=== PATIENT | male | born 1940 | race Caucasian/White ===

== ENCOUNTER 2019-10-11 14:09 | Inpatient (IN) ==
--- NOTE | 2019-10-11 15:13 | DR.SOBA ---
HPI Time Seen Time Seen by Provider: 10/11/19 15:12 Primary Care Physician Primary Care Physician: VENTURA HPI Comment HPI Comment: 79 yo cm w/ pmh copd/ asthma/ cad and tobacco abuse presents w/ cough/ sob x 24 hrs. Reports productive cough and progressive sob/ wheezing x 1 day. Productive of yellow sputum a/w diffuse chest tightness present only w/ coughing. No other CP. No f/c, cold/ congestion, abd pain, n/v/d, diaphoresis, syncope, leg swelling/ pain. home o2 dependent at night. Complaints Chief Complaint:: PT BECAME SHORT OF BREATHE WITH COUGHNG. COUGHING MADE HIM BE SHORT OF BREATHE. TIGHT IN CHEST LIKE CONGESTION. Self Treatment fo Chief Complaint: INHALER AND COUGH MEDS Reviewed Nurses Notes Reviewed: Yes Source History Provided: Patient and Family Member Mode of Arrival Mode of Arrival: Ambulatory Timing Onset of Chief Complaint: 10/10/19 Context History of:: Asthma and COPD; denies CHF and DVT/PE Associated Signs and Symptoms Associated Signs and Symptoms: Wheeze, Cough and Chest Pain; denies Fever, Nasal Congestion, Sore Throat, Hemoptysis, Leg Swelling and Calf Pain PMH PMH Past Medical History: Yes Past Medical History: Anxiety, Asthma, CHF, COPD, Dyslipidemia, GERD, Hypertension and OH Past Surgical History: Yes Surgical History: Angioplasty/Stents, Cholecystectomy and Ortho Surgery Family History History of Family Medical Conditions: Yes Family Medical History: Diabetes Mellitus, [place] and Hypertension Social History Type of Tobacco Use: Cigarettes Does any household member use tobacco: Yes Alcohol Use: DAILY Do you use any recreational Drugs:: No Lives With: Family Lives Where: Home infectious screening In the last 2 months have you had wt loss of >10#?: NO Have you had fever, night sweats or hemotysis?: No Have you traveled outside the country in the last 6 months?: No Isolation: Standard ROS Review of Systems Constitutional: No Symptoms Reported; negative Chills and Fever Eyes: No Symptoms Reported ENTM: No Symptoms Reported Respiratoy: Productive Cough, Short of Breath and Wheezing; negative Stridor Cardiovascular: negative Chest Pain, Edema and Syncope Gastrointestinal/Abdominal: No Symptoms Reported Genitourinary: No Symptoms Reported Neurological: No Symptoms Reported Musculoskeletal: No Symptoms Reported Integumentary: No Symptoms Reported Hematologic/Lymphatic: No Symptoms Reported Endocrine: No Symptoms Reported Psychiatric: No Symptoms Reported All Other Systems: Reviewed and Negative PE Vital Signs Vitals: Temperature 97.4 F Pulse Rate 71 Respiratory Rate 22 Blood Pressure [Left Arm] 143/69 Blood Pressure 126/58 O2 Sat by Pulse Oximetry 99 General Limitations: No Limitations General Appearance: Other (this body habitus, pulse ox 91% on RA ) Head Head Exam: Normal Inspection Eyes Eye exam: Normal Appearance ENT ENT Exam: Normal Exam Neck Neck Exam: Normal Inspection Chest Chest Inspection: Normal Inspection Respiratory Respiratory Exam: Prolonged Expiratory Phase; negative Accessory Muscle Use and Chest Wall Tenderness Respiratory Exam: Bilateral: Wheezing Cardiovascular Cardiovascular Exam: Regular Rate and Normal Rhythm Abdominal Exam Abdominal Exam: Normal Inspection, Normal Bowel Sounds and Soft Extremities Extremities Exam: Normal Inspection Back Back Exam: Normal Inspection Neurologic Neurological Exam: Alert and Oriented X3 Psychiatric Psychiatric Exam: Normal Affect and Normal Mood Skin Skin Exam: Warm, Dry, Intact and Normal Color MDM Additional Information Obtained Additional Information Obtained From: Old Records and Family Differential Diagnosis Differential Diagnosis: Asthma, Bronchitis, CHF, COPD, Mycardial Infarction, Pneumonia, Pneumothorax, Pulmonary embolism and Respiratory Failure COURSE Treatment Treatment: 79 yo m w/ prev hx of COPD/ asthma, home o2 dependant at night presents w/ 1 day hx of cough/ sob. CXR c/w CAP. Wheezing on exam. Given duoneb x 1, steroids. Started empirically on azithromycin/ rocephin. WBC elevated. CRe mildly elevated c/w yesica, likely hypovolemia, fluids started. Elevated lactate. BP stable. Will d/w hospitalist and admit patient. Education/Counseling Education/Counseling: Patient and Family Educated On: Treatment, Diagnosis, Prognosis and Needs for Follow Up ROR Labs Reviewed Laboratory Results Reviewed?: Yes Result Diagrams: 10/11/19 15:23 10/11/19 15:23 Laboratory: 10/11/19 15:47 Sputum - Expectorated Sputum - Final WBC 9.9 X10^3/uL (3.6-10.0) 10/11/19 15:23 RBC 4.00 X10^6/uL (4.7-6.0) L 10/11/19 15:23 Hgb 13.1 g/dL (13.5-18.0) L 10/11/19 15:23 Hct 38.9 % (42.0-54.0) L 10/11/19 15:23 MCV 97.2 fL (80.0-100.0) 10/11/19 15:23 MCH 32.8 pg (27.0-34.0) 10/11/19 15: MCHC 33.8 g/dL (33.0-35.0) 10/11/19 15: RDW 13.8 % (11.6-16.5) 10/11/19 15: Plt Count 230 X10^3/uL (150.0-450.0) 10/11/19 15: Plt Count Comment Adequate (ADEQUATE) 10/11/19 15: MPV 7.8 fL (7.4-11.0) 10/11/19 15: Neut % (Auto) 92.7 % (42.0-75.0) H 10/11/19 15: Lymph % (Auto) 5.3 % (21.0-51.0) L 10/11/19 15:23 [place] % (Auto) 1.6 % (0.0-13.0) 10/11/19 15: Eos % (Auto) 0.0 % (0.9-2.9) L 10/11/19 15:23 Baso % (Auto) 0.4 % (0.2-1.0) 10/11/19 15: Neut # (Auto) 9.2 x10^3/uL (2.2-4.8) H 10/11/19 15:23 Lymph # (Auto) 0.5 X10^3/uL (1.3-2.9) L 10/11/19 15:23 [place] # (Auto) 0.2 x10^3/uL (0.3-0.8) L 10/11/19 15:23 Eos # (Auto) 0.0 x10^3/uL (0.0-0.2) 10/11/19 15: Baso # (Auto) 0.0 X10^3/uL (0.0-0.1) 10/11/19 15: Absolute Nucleated RBC 0.0 /100WBC 10/11/19 15:23 Total Counted 100 10/11/19 15: Neutrophils % (Manual) 35 % (39-76) L 10/11/19 15:23 Band Neutrophils % 48 % (0-10) H 10/11/19 15:23 Lymphocytes % (Manual) 10 % (13-43) L 10/11/19 15:23 Metamyelocytes % 7 10/11/19 15:23 Plt Morphology Comment Normal (NORMAL) 10/11/19 15:23 RBC Morphology Normal (NORMAL) 10/11/19 15:23 Sodium 139 mmol/L (136-145) 10/11/19 15:23 Corrected Sodium 139 mmol/L (136-145) 10/11/19 15:23 Potassium 4.1 mmol/L (3.5-5.1) 10/11/19 15:23 Chloride 101 mmol/L (98-107) 10/11/19 15:23 Carbon Dioxide 25.0 mmol/L (21-32) 10/11/19 15:23 BUN 18 mg/dL (7-18) 10/11/19 15:23 Creatinine 1.44 mg/dL (0.70-1.30) H 10/11/19 15:23 Est GFR (MDRD) Af Amer > 60 (>60) 10/11/19 15:23 Est GFR (MDRD) Non-Af 50 (>60) L 10/11/19 15:23 Glucose 119 mg/dL (65-99) H 10/11/19 15:23 Lactic Acid 6.1 mmol/L (0.4-2.0) H 10/11/19 15:48 Calcium 8.4 mg/dL (8.5-10.1) L 10/11/19 15:23 Troponin I 0.11 ng/mL (0-1.5) 10/11/19 15:23 XRAY XRAY Interpreted by: Radiologist XRAY Findings: Left field infiltrate on cxr EKG Rate: 73 [place]: Normal Rhythm: NSR Block: None ST: Nonsp Opioid Opioid Risk Tool Age (Robel box if 16-45): No Total: 0 Total Score Risk Category: Low Risk Copyright: [facility] predicting aberrant behaviors Diagnosis Discharge Problem: Acute exacerbation of chronic obstructive pulmonary disease (COPD), Chronic hypoxemic respiratory failure, YESICA (acute kidney injury), Acidosis, lactic, Severe sepsis Community acquired pneumonia Qualifiers: Laterality: left Lung location: unspecified part of lung Qualified Code(s): J18.9 - Pneumonia, unspecified organism
--- NOTE | 2019-10-11 15:14 | RAD ---
HISTORYSOBSTUDYCHEST, PA/LAT ADULTCOMPARISONPrevious chest radiograph from 03/16/2019FINDINGSMild cardiomegaly is seen chronic reticulonodular interstitial opacities are noted bilaterally. However increasingly prominent interstitial opacity has developed in the left lung, which may reflect superimposed inflammatory process. Bilateral apical pleural thickening is noted. No significant effusion on either side. Hyperinflation related to COPD is again noted as well. Bony thorax is unremarkable.IMPRESSION1. COPD with chronic interstitial scarring.2. Interval development of increasingly prominent interstitial opacity throughout the left lung may reflect superimposed inflammatory process.Electronically signed by: JEANE LAZARO (Oct 11, 2019 15:13:05)
[2019-10-11 15:29] LABS: BASOPHILS % (AUTO) 0.4 % (0.2-1.0); HEMATOCRIT 38.9 % (42.0-54.0); HEMOGLOBIN 13.1 g/dL (13.5-18.0); LYMPHOCYTES # (AUTO) 0.5 X10^3/uL (1.3-2.9); LYMPHOCYTES % (AUTO) 5.3 % (21.0-51.0); MEAN CORPUSCULAR HEMOGLOBIN 32.8 pg (27.0-34.0); MEAN CORPUSCULAR HGB CONC 33.8 g/dL (33.0-35.0); MEAN CORPUSCULAR VOLUME 97.2 fL (80.0-100.0); MEAN PLATELET VOLUME 7.8 fL (7.4-11.0); MONOCYTES # (AUTO) 0.2 x10^3/uL (0.3-0.8); MONOCYTES % (AUTO) 1.6 % (0.0-13.0); NEUTROPHILS # (AUTO) 9.2 x10^3/uL (2.2-4.8); NEUTROPHILS % (AUTO) 92.7 % (42.0-75.0); PLATELET COUNT 230 X10^3/uL (150.0-450.0); RED CELL DISTRIBUTION WIDTH 13.8 % (11.6-16.5); WHITE BLOOD COUNT 9.9 X10^3/uL (3.6-10.0)
[2019-10-11] MEDS ORDERED: SOLU-Medrol 125 MG VIAL IVP ONE (15:32)
[2019-10-11] MEDS ORDERED: ROCEPHIN VIAL 1 GRAM 1 G in NS 100 ML IV + SPIKE MINIBAG* 100 ML IV ONE (15:32)
[2019-10-11] MEDS ORDERED: DUONEB 0.5 MG/3 MG (3 mL) NEB ONE ×2 (15:33→18:01)
[2019-10-11] MEDS: DUONEB 0.5 MG/3 MG (3 mL) NEB ONE (15:38)
[2019-10-11 15:43] LABS: BLOOD UREA NITROGEN 18 mg/dL (7-18); CALCIUM 8.4 mg/dL (8.5-10.1); CHLORIDE 101 mmol/L (98-107); COR NA(FOR HYPERGLY) 139 mmol/L (136-145); CREATININE 1.44 mg/dL (0.70-1.30); SODIUM 139 mmol/L (136-145); TROPONIN I 0.11 ng/mL (0-1.5); eGFR NON BLACK RACES 50 (>60)
[2019-10-11 15:58] LABS: BAND NEUTROPHILS % 48 % (0-10); METAMYELOCYTES % 7
[2019-10-11 16:01] LABS: PLATELET MORPHOLOGY COMMENT NORMAL (NORMAL)
[2019-10-11] MEDS ORDERED: ZITHROMAX INJ 500 MG VIAL IV ONE (16:22)
[2019-10-11] MEDS ORDERED: NS 100 ML IV + SPIKE MINIBAG* 100 ML IV ONE (16:23)
[2019-10-11] MEDS ORDERED: ROCEPHIN VIAL 1 GRAM ONE (16:24)
[2019-10-11] MEDS ORDERED: NS 250 ML IV 0 ML IV ONE (16:24)
[2019-10-11] MEDS ORDERED: NS 1000 ML 1,000 ML IV ONE (16:33)
[2019-10-11] MEDS ORDERED: NS 1000 ML 1,000 ML ONE ×2 (16:40→17:49)
[2019-10-11] MEDS: ZITHROMAX INJ 500 MG VIAL 500 MG in NS 250 ML IV 250 ML IV SCH (16:58)
[2019-10-11] MEDS ORDERED: ROCEPHIN VIAL 1 GRAM 1 G in NS 100 ML IV + SPIKE MINIBAG* 100 ML IV SCH (17:27)
--- NOTE | 2019-10-11 17:36 | DR.SOBA ---
HPI Time Seen Time Seen by Provider: 10/11/19 15:12 Primary Care Physician Primary Care Physician: WHITEHEAD Complaints Chief Complaint:: PT BECAME SHORT OF BREATHE WITH COUGHNG. COUGHING MADE HIM BE SHORT OF BREATHE. TIGHT IN CHEST LIKE CONGESTION. Self Treatment fo Chief Complaint: INHALER AND COUGH MEDS Source History Provided: Patient and Family Member Mode of Arrival Mode of Arrival: Ambulatory Timing Onset of Chief Complaint: 10/10/19 PMH PMH Past Medical History: Yes Past Medical History: Anxiety, Asthma, CHF, COPD, Dyslipidemia, GERD, Hypertension and [place] Past Surgical History: Yes Surgical History: Angioplasty/Stents, Cholecystectomy and Ortho Surgery Family History History of Family Medical Conditions: Yes Family Medical History: Diabetes Mellitus, [place] and Hypertension Social History Type of Tobacco Use: Cigarettes Does any household member use tobacco: Yes Alcohol Use: DAILY Do you use any recreational Drugs:: No Lives With: Family Lives Where: Home infectious screening In the last 2 months have you had wt loss of >10#?: NO Have you had fever, night sweats or hemotysis?: No Have you traveled outside the country in the last 6 months?: No Isolation: Standard PE Vital Signs Vitals: Temperature 97.4 F Pulse Rate 71 Respiratory Rate 22 Blood Pressure [Left Arm] 143/69 Blood Pressure 126/58 O2 Sat by Pulse Oximetry 99 ROR Labs Reviewed Result Diagrams: 10/11/19 15:23 10/11/19 15:23 Laboratory: 10/11/19 15:47 Sputum - Expectorated Sputum - Final WBC 9.9 X10^3/uL (3.6-10.0) 10/11/19 15: RBC 4.00 X10^6/uL (4.7-6.0) L 10/11/19 15:23 Hgb 13.1 g/dL (13.5-18.0) L 10/11/19 15: Hct 38.9 % (42.0-54.0) L 10/11/19 15: MCV 97.2 fL (80.0-100.0) 10/11/19 15:23 MCH 32.8 pg (27.0-34.0) 10/11/19 15: MCHC 33.8 g/dL (33.0-35.0) 10/11/19 15: RDW 13.8 % (11.6-16.5) 10/11/19 15:23 Plt Count 230 X10^3/uL (150.0-450.0) 10/11/19 15: Plt Count Comment Adequate (ADEQUATE) 10/11/19 15: MPV 7.8 fL (7.4-11.0) 10/11/19 15:23 Neut % (Auto) 92.7 % (42.0-75.0) H 10/11/19 15:23 Lymph % (Auto) 5.3 % (21.0-51.0) L 10/11/19 15:23 [place] % (Auto) 1.6 % (0.0-13.0) 10/11/19 15:23 Eos % (Auto) 0.0 % (0.9-2.9) L 10/11/19 15:23 Baso % (Auto) 0.4 % (0.2-1.0) 10/11/19 15:23 Neut # (Auto) 9.2 x10^3/uL (2.2-4.8) H 10/11/19 15:23 Lymph # (Auto) 0.5 X10^3/uL (1.3-2.9) L 10/11/19 15:23 [place] # (Auto) 0.2 x10^3/uL (0.3-0.8) L 10/11/19 15:23 Eos # (Auto) 0.0 x10^3/uL (0.0-0.2) 10/11/19 15: Baso # (Auto) 0.0 X10^3/uL (0.0-0.1) 10/11/19 15:23 Absolute Nucleated RBC 0.0 /100WBC 10/11/19 15:23 Total Counted 100 10/11/19 15:23 Neutrophils % (Manual) 35 % (39-76) L 10/11/19 15:23 Band Neutrophils % 48 % (0-10) H 10/11/19 15:23 Lymphocytes % (Manual) 10 % (13-43) L 10/11/19 15:23 Metamyelocytes % 7 10/11/19 15:23 Plt Morphology Comment Normal (NORMAL) 10/11/19 15: RBC Morphology Normal (NORMAL) 10/11/19 15:23 Sodium 139 mmol/L (136-145) 10/11/19 15:23 Corrected Sodium 139 mmol/L (136-145) 10/11/19 15:23 Potassium 4.1 mmol/L (3.5-5.1) 10/11/19 15:23 Chloride 101 mmol/L (98-107) 10/11/19 15:23 Carbon Dioxide 25.0 mmol/L (21-32) 10/11/19 15:23 BUN 18 mg/dL (7-18) 10/11/19 15:23 Creatinine 1.44 mg/dL (0.70-1.30) H 10/11/19 15:23 Est GFR (MDRD) Af Amer > 60 (>60) 10/11/19 15:23 Est GFR (MDRD) Non-Af 50 (>60) L 10/11/19 15:23 Glucose 119 mg/dL (65-99) H 10/11/19 15:23 Lactic Acid 6.1 mmol/L (0.4-2.0) H 10/11/19 15:48 Calcium 8.4 mg/dL (8.5-10.1) L 10/11/19 15:23 Troponin I 0.11 ng/mL (0-1.5) 10/11/19 15:23 Opioid Opioid Risk Tool Age (Robel box if 16-45): No Total: 0 Total Score Risk Category: Low Risk Copyright: [facility] predicting aberrant behaviors Diagnosis Discharge Problem: Acute exacerbation of chronic obstructive pulmonary disease (COPD), Chronic hypoxemic respiratory failure, HAILEY (acute kidney injury), Acidosis, lactic, Severe sepsis Community acquired pneumonia Qualifiers: Laterality: left Lung location: unspecified part of lung Qualified Code(s): J18.9 - Pneumonia, unspecified organism
[2019-10-11 18:08] LABS: CKMB % 0.6 % (<4); CREATINE KINASE MB 1.7 ng/mL (0-4.0); TROPONIN I 0.11 ng/mL (0-1.5)
[2019-10-11] MEDS: DUONEB 0.5 MG/3 MG (3 mL) NEB SCH (18:13)
[2019-10-11] MEDS: NS 1000 ML 1,000 ML IV SCH (23:31)
[2019-10-11 23:51] LABS: CKMB % 0.7 % (<4); CREATINE KINASE MB 2.1 ng/mL (0-4.0); TROPONIN I 0.24 ng/mL (0-1.5)
[2019-10-12] MEDS: DUONEB 0.5 MG/3 MG (3 mL) NEB SCH ×4 (00:25→17:11)
[2019-10-12] MEDS: NS 1000 ML 1,000 ML IV SCH ×2 (01:30→11:25)
[2019-10-12 01:56] VITALS: BMI 21.6
[2019-10-12 05:41] LABS: BASOPHILS % (AUTO) 0.4 % (0.2-1.0); EOSINOPHILS % (AUTO) 0.1 % (0.9-2.9); HEMATOCRIT 29.9 % (42.0-54.0); HEMOGLOBIN 10.3 g/dL (13.5-18.0); LYMPHOCYTES # (AUTO) 1.4 X10^3/uL (1.3-2.9); LYMPHOCYTES % (AUTO) 13.5 % (21.0-51.0); MEAN CORPUSCULAR HEMOGLOBIN 33.3 pg (27.0-34.0); MEAN CORPUSCULAR HGB CONC 34.4 g/dL (33.0-35.0); MEAN CORPUSCULAR VOLUME 96.6 fL (80.0-100.0); MEAN PLATELET VOLUME 7.8 fL (7.4-11.0); MONOCYTES # (AUTO) 0.4 x10^3/uL (0.3-0.8); MONOCYTES % (AUTO) 3.9 % (0.0-13.0); NEUTROPHILS # (AUTO) 8.5 x10^3/uL (2.2-4.8); NEUTROPHILS % (AUTO) 82.1 % (42.0-75.0); PLATELET COUNT 174 X10^3/uL (150.0-450.0); RED CELL DISTRIBUTION WIDTH 13.9 % (11.6-16.5); WHITE BLOOD COUNT 10.3 X10^3/uL (3.6-10.0)
[2019-10-12 05:51] LABS: ALANINE AMINOTRANSFERASE 11 Units/L (12-78); ALBUMIN 2.2 g/dL (3.4-5.0); ALKALINE PHOSPHATASE 50 Units/L (46-116); ASPARTATE AMINO TRANSFERASE 22 Units/L (15-37); BLOOD UREA NITROGEN 23 mg/dL (7-18); CALCIUM 7.5 mg/dL (8.5-10.1); CHLORIDE 106 mmol/L (98-107); COR CA(FOR HYPOALB) 8.9 mg/dL (8.5-10.1); COR NA(FOR HYPERGLY) 141 mmol/L (136-145); SODIUM 140 mmol/L (136-145); TOTAL PROTEIN 5.3 g/dL (6.4-8.2); eGFR NON BLACK RACES > 60 (>60)
[2019-10-12 05:54] LABS: LACTIC ACID 2.5 mmol/L (0.4-2.0)
[2019-10-12 06:04] LABS: CKMB % 0.9 % (<4); CREATINE KINASE MB 2.2 ng/mL (0-4.0); TROPONIN I 0.31 ng/mL (0-1.5)
[2019-10-12] MEDS ORDERED: POTASSIUM CHL 40 MEQ/NS 0.45% 500 ML IV PRN (06:32)
[2019-10-12] MEDS ORDERED: POTASSIUM CHLORIDE LIQ 20 MEQ UDC PO PRN (06:32)
[2019-10-12] MEDS ORDERED: POTASSIUM CHL 60 MEQ/NS 0.45% 500 ML IV PRN (06:32)
[2019-10-12] MEDS ORDERED: MICRO K EXTEN CAP 10 MEQ PO PRN (06:32)
[2019-10-12] MEDS ORDERED: K-RIDER 10 MEQ/NS 100 ML 10 MEQ/100 ML BAG IV PRN (06:32)
[2019-10-12] MEDS ORDERED: NITROSTAT SL PRN (09:26)
[2019-10-12] MEDS ORDERED: FLUTICASONE FUROATE VILANTEROL IN SCH (09:30)
[2019-10-12] MEDS: PROTONIX TAB 40 MG PO SCH ×2 (11:16→21:03)
[2019-10-12] MEDS: LOPRESSOR TAB 50 MG PO SCH ×2 (11:16→21:04)
[2019-10-12] MEDS: DILANTIN CAP 100 MG EXT REL PO SCH ×2 (11:16→21:04)
[2019-10-12] MEDS: PLAVIX PO SCH (11:16)
[2019-10-12] MEDS: MAGNESIUM SULFATE 1 GRAM/100 mL PREMIX 1 GM/100 ML BAG IV PRN ×2 (11:17→16:31)
[2019-10-12] MEDS: ROCEPHIN VIAL 1 GRAM 1 G in NS 100 ML IV + SPIKE MINIBAG* 100 ML IV SCH (11:18)
[2019-10-12] MEDS: PREDNISONE TAB 10 MG PO SCH (11:19)
[2019-10-12] MEDS: KLOR-CON PO PRN (11:40)
[2019-10-12] MEDS: ZITHROMAX INJ 500 MG VIAL 500 MG in NS 250 ML IV 250 ML IV SCH (14:56)
[2019-10-12] MEDS: FOLIC ACID TAB 1 MG PO SCH (16:37)
[2019-10-12] MEDS ORDERED: ZITHROMAX INJ 500 MG VIAL 500 MG in NS 250 ML IV 250 ML IV SCH (19:00)
[2019-10-12] MEDS ORDERED: XANAX PO SCH (21:00)
[2019-10-12] MEDS: SINEquan PO SCH (21:04)
[2019-10-12] MEDS: NICOTINE PATCH TD SCH (23:29)
[2019-10-13] MEDS: DUONEB 0.5 MG/3 MG (3 mL) NEB SCH ×4 (01:07→17:07)
[2019-10-13] MEDS: NS 1000 ML 1,000 ML IV SCH ×4 (02:30→20:59)
[2019-10-13 05:28] LABS: BASOPHILS % (AUTO) 0.4 % (0.2-1.0); HEMATOCRIT 32.2 % (42.0-54.0); LYMPHOCYTES % (AUTO) 9.9 % (21.0-51.0); MEAN CORPUSCULAR HEMOGLOBIN 33.2 pg (27.0-34.0); MEAN CORPUSCULAR HGB CONC 34.3 g/dL (33.0-35.0); MEAN CORPUSCULAR VOLUME 96.8 fL (80.0-100.0); MEAN PLATELET VOLUME 8.2 fL (7.4-11.0); MONOCYTES # (AUTO) 0.4 x10^3/uL (0.3-0.8); MONOCYTES % (AUTO) 4.4 % (0.0-13.0); NEUTROPHILS # (AUTO) 8.6 x10^3/uL (2.2-4.8); NEUTROPHILS % (AUTO) 85.3 % (42.0-75.0); PLATELET COUNT 175 X10^3/uL (150.0-450.0); RED BLOOD COUNT 3.32 X10^6/uL (4.7-6.0); RED CELL DISTRIBUTION WIDTH 14.3 % (11.6-16.5); WHITE BLOOD COUNT 10.1 X10^3/uL (3.6-10.0)
[2019-10-13 05:45] LABS: LACTIC ACID 3.4 mmol/L (0.4-2.0)
[2019-10-13 05:56] LABS: ALANINE AMINOTRANSFERASE 17 Units/L (12-78); ALBUMIN 2.4 g/dL (3.4-5.0); ALKALINE PHOSPHATASE 66 Units/L (46-116); ASPARTATE AMINO TRANSFERASE 21 Units/L (15-37); BLOOD UREA NITROGEN 25 mg/dL (7-18); CALCIUM 8.2 mg/dL (8.5-10.1); CARBON DIOXIDE 25.2 mmol/L (21-32); CHLORIDE 107 mmol/L (98-107); CKMB % 2.1 % (<4); COR CA(FOR HYPOALB) 9.5 mg/dL (8.5-10.1); COR NA(FOR HYPERGLY) 141 mmol/L (136-145); CREATINE KINASE 109 Units/L (39-308); CREATINE KINASE MB 2.3 ng/mL (0-4.0); CREATININE 0.88 mg/dL (0.70-1.30); SODIUM 141 mmol/L (136-145); TOTAL PROTEIN 6.1 g/dL (6.4-8.2); TROPONIN I 0.19 ng/mL (0-1.5); eGFR NON BLACK RACES > 60 (>60)
--- NOTE | 2019-10-13 07:37 | RAD ---
HISTORYFollow-up pneumoniaSTUDYCHEST, PA/LAT [id number] heart is enlarged. Mild pulmonary venous congestion is present. The lungs are hyperinflated. Diffuse severe chronic interstitial lung disease is present. There appears to be some superimposed alveolar infiltrate throughout the left lung which is increasing. No pleural effusions are identified. The bony thorax is unremarkable.IMPRESSIONMild cardiomegaly with mild pulmonary venous congestionHyperinflation with severe diffuse chronic interstitial lung diseaseSome superimposed areas of alveolar filling now present on the leftElectronically signed by: SANTIAGO HILLIARD (Oct 13, 2019 07:35:17)
[2019-10-13] MEDS: ROCEPHIN VIAL 1 GRAM 1 G in NS 100 ML IV + SPIKE MINIBAG* 100 ML IV SCH (08:36)
[2019-10-13] MEDS: PREDNISONE TAB 10 MG PO SCH (08:36)
[2019-10-13] MEDS: PROTONIX TAB 40 MG PO SCH ×2 (08:37→20:53)
[2019-10-13] MEDS: DILANTIN CAP 100 MG EXT REL PO SCH ×2 (08:37→20:53)
[2019-10-13] MEDS: LOPRESSOR TAB 50 MG PO SCH ×2 (08:37→20:54)
[2019-10-13] MEDS: PLAVIX PO SCH (08:37)
[2019-10-13] MEDS: K-DUR TAB 20 MEQ PO PRN ×2 (08:37→20:53)
[2019-10-13] MEDS: FOLIC ACID TAB 1 MG PO SCH (08:37)
[2019-10-13 08:38] LABS: ABG ALLEN TEST POS; ABG BASE EXCESS -0.7 mmol/L (-2.0-2.0); ABG HCO3 23.2 mmol/L (22-26)
[2019-10-13] MEDS: NICOTINE PATCH TD SCH (08:43)
[2019-10-13] MEDS: LASIX IVP SCH ×2 (08:43→20:52)
[2019-10-13] MEDS ORDERED: PHARMACY CONSULT - VANCOMYCIN XX SCH (09:00)
[2019-10-13] MEDS: PULMICORT NEB TX 0.5 MG NEB SCH ×2 (09:33→21:10)
[2019-10-13] MEDS: VANCOMYCIN HCL 750 MG in D5W 250 ML IV 250 ML IV SCH ×2 (10:00→20:55)
[2019-10-13 10:28] LABS: BILIRUBIN,URINE NEGATIVE (NEGATIVE); BLOOD/HEMOGLOBIN,URINE 4+ (NEGATIVE); GLUCOSE, URINE NEGATIVE (NEGATIVE); KETONES,URINE NEGATIVE (NEGATIVE); LEUKOCYTE ESTERASE ,URINE NEGATIVE (NEGATIVE); NITRITES,URINE NEGATIVE (NEGATIVE); PROTEIN,URINE NEGATIVE (NEGATIVE); UROBILINOGEN,URINE NORMAL (NORMAL)
[2019-10-13 10:33] LABS: APPEARANCE,URINE CLEAR (CLEAR); BACTERIA,URINE NEGATIVE /HPF (NEGATIVE); COLOR,URINE YELLOW (YELLOW); SQUAMOUS EPITHELIAL CELL,UR NEGATIVE /HPF (NEGATIVE)
[2019-10-13] MEDS: LOVENOX INJ 30 MG SYR SC SCH (11:27)
[2019-10-13 12:37] LABS: CKMB % 2.1 % (<4); CREATINE KINASE MB 1.9 ng/mL (0-4.0); TROPONIN I 0.13 ng/mL (0-1.5)
--- NOTE | 2019-10-13 18:03 | PCM.PROG ---
Progress Note - Progress Note for Day of Date of Exam: 10/13/19 - Subjective Subjective: PT IS 79 WM ER ADMISSION WITH FLU LIKE SYMPTOMS, SOB WITH COPD. PT HAD ELEVATED LACTIC ACID LEVEL AT 3.4 THIS AM. PT DEHYDRATED ON ADMISSION WITH HYPOKALEMIA. PT HAD DIFFUSE EXPIRATORY WHEEZES AND DIMINISHED LUNG BASES ON EXAM TODAY. PT IVFS DECREASED TO 50CC/HR WITH LASIX IV 40MG X 2 DOSES ORDERED TODAY. IV VANCOMYCIN AND IV ROCEPHIN, ADDED BUEDESONIDE. PT HAD THICK BROWN PUTUM PRODUCTION THIS AM WITH REPEAT CULTURE ORDERED. PT ON SUPPLEMENTAL O2. WILL REPEAT AM LABS AND CXR. - Past Medical Family Social History Past Med/Fam/Surg Hx: No changes since H&P Allergies: Allergies No Known Drug Allergies Allergy (Verified 10/11/19 14:25) - Review of Systems ROS: No change since H&P - Vital Signs and I&O's Vital Signs: Temperature 98.4 F Pulse Rate [Left Radial] 80 Pulse Rate 82 Respiratory Rate 18 Blood Pressure [Left Arm] 158/76 Blood Pressure 110/56 O2 Sat by Pulse Oximetry 93 Intake and Output: Intake & Output 10/11/19 10/12/19 10/13/19 10/14/19 11:59 11:59 11:59 11:59 Intake Total 1200 / 1200 2912 / 2912 720 / 720 Output Total 375 / 375 1250 / 1250 Balance 1200 / 1200 2537 / 2537 -530 / -530 - Physical Exam Oriented: Normal Eyes: Normal Ear: Normal Nose: Discharge Throat: Dry Respiratory: Normal, Diminished, Rhonchi Cardiovascular: Normal : Normal Auscultation: Bowel Sounds: Normal Palpation: Normal Tenderness: Normal Musculoskeletal: Right, Left, Leg, Motor Deficit Psychiatric: Anxiety Affect: Anxious Speech Pattern: Clear, Appropriate - Laboratory and Diagnostics Result Diagrams: 10/13/19 05:06 10/13/19 05:06 Labs: 10/11/19 17:20 Blood Blood Culture - Preliminary 10/11/19 17:14 Blood Blood Culture - Preliminary 10/13/19 12:40 Sputum - Expectorated Sputum - Final 10/11/19 15:47 Sputum - Expectorated Sputum Sputum Culture - Preliminary 10/11/19 15:47 Sputum - Expectorated Sputum - Final Laboratory WBC 10.1 X10^3/uL (3.6-10.0) H 10/13/19 05:06 RBC 3.32 X10^6/uL (4.7-6.0) L 10/13/19 05:06 Hgb 11.0 g/dL (13.5-18.0) L 10/13/19 05:06 Hct 32.2 % (42.0-54.0) L 10/13/19 05:06 MCV 96.8 fL (80.0-100.0) 10/13/19 05:06 MCH 33.2 pg (27.0-34.0) 10/13/19 05:06 MCHC 34.3 g/dL (33.0-35.0) 10/13/19 05:06 RDW 14.3 % (11.6-16.5) 10/13/19 05:06 Plt Count 175 X10^3/uL (150.0-450.0) 10/13/19 05:06 Plt Count Comment Adequate (ADEQUATE) 10/11/19 15:23 MPV 8.2 fL (7.4-11.0) 10/13/19 05:06 Neut % (Auto) 85.3 % (42.0-75.0) H 10/13/19 05:06 Lymph % (Auto) 9.9 % (21.0-51.0) L 10/13/19 05:06 [place] % (Auto) 4.4 % (0.0-13.0) 10/13/19 05:06 Eos % (Auto) 0.0 % (0.9-2.9) L 10/13/19 05:06 Baso % (Auto) 0.4 % (0.2-1.0) 10/13/19 05:06 Neut # (Auto) 8.6 x10^3/uL (2.2-4.8) H 10/13/19 05:06 Lymph # (Auto) 1.0 X10^3/uL (1.3-2.9) L 10/13/19 05:06 [place] # (Auto) 0.4 x10^3/uL (0.3-0.8) 10/13/19 05:06 Eos # (Auto) 0.0 x10^3/uL (0.0-0.2) 10/13/19 05:06 Baso # (Auto) 0.0 X10^3/uL (0.0-0.1) 10/13/19 05:06 Absolute Nucleated RBC 0.0 /100WBC 10/13/19 05:06 Total Counted 100 10/11/19 15:23 Neutrophils % (Manual) 35 % (39-76) L 10/11/19 15:23 Band Neutrophils % 48 % (0-10) H 10/11/19 15:23 Lymphocytes % (Manual) 10 % (13-43) L 10/11/19 15:23 Metamyelocytes % 7 10/11/19 15:23 Plt Morphology Comment Normal (NORMAL) 10/11/19 15:23 RBC Morphology Normal (NORMAL) 10/11/19 15:23 Sample Site Rr 10/13/19 08:33 ABG pH 7.430 (7.35-7.45) 10/13/19 08:33 ABG pCO2 35.0 mmHg (35.0-45.0) 10/13/19 08:33 ABG pO2 58.0 mmHg (80.0-100.0) L 10/13/19 08:33 ABG HCO3 23.2 mmol/L (22-26) 10/13/19 08:33 ABG O2 Saturation 91.0 % (90-100) 10/13/19 08:33 ABG Base Excess -0.7 mmol/L (-2.0-2.0) 10/13/19 08:33 Dante Test Pos 10/13/19 08:33 A-a Gradient 126.0 mmHg 10/13/19 08:33 FiO2 32.0 10/13/19 08:33 Blood Gas Comments Chaitanya well cb 10/13/19 08:33 Sodium 141 mmol/L (136-145) 10/13/19 05:06 Corrected Sodium 141 mmol/L (136-145) 10/13/19 05:06 Potassium 3.4 mmol/L (3.5-5.1) L 10/13/19 05:06 Chloride 107 mmol/L (98-107) 10/13/19 05:06 Carbon Dioxide 25.2 mmol/L (21-32) 10/13/19 05:06 BUN 25 mg/dL (7-18) H 10/13/19 05:06 Creatinine 0.88 mg/dL (0.70-1.30) 10/13/19 05:06 Est GFR (MDRD) Af Amer > 60 (>60) 10/13/19 05:06 Est GFR (MDRD) Non-Af > 60 (>60) 10/13/19 05:06 Glucose 114 mg/dL (65-99) H 10/13/19 05:06 Lactic Acid 3.4 mmol/L (0.4-2.0) H 10/13/19 05:06 Calcium 8.2 mg/dL (8.5-10.1) L 10/13/19 05:06 Corrected Calcium 9.5 mg/dL (8.5-10.1) 10/13/19 05:06 Magnesium 2.1 mg/dL (1.7-2.9) 10/13/19 05:06 Total Bilirubin 0.30 mg/dL (0.2-1.0) 10/13/19 05:06 AST 21 Units/L (15-37) 10/13/19 05:06 ALT 17 Units/L (12-78) 10/13/19 05:06 Alkaline Phosphatase 66 Units/L (46-116) 10/13/19 05:06 Creatine Kinase 91 Units/L (39-308) 10/13/19 12:06 CK-MB (CK-2) 1.9 ng/mL (0-4.0) 10/13/19 12:06 CK/CKMB % Calc 2.1 % (<4) 10/13/19 12:06 Troponin I 0.13 ng/mL (0-1.5) 10/13/19 12:06 Total Protein 6.1 g/dL (6.4-8.2) L 10/13/19 05:06 Albumin 2.4 g/dL (3.4-5.0) L 10/13/19 05:06 Globulin 3.7 g/dL (2.5-4.5) 10/13/19 05:06 Albumin/Globulin Ratio 0.6 Ratio (1.1-2.1) L 10/13/19 05:06 Specimen Type Clean catch urine 10/13/19 10:10 Urine Color Yellow (YELLOW) 10/13/19 10:10 Urine Appearance Clear (CLEAR) 10/13/19 10:10 Urine pH 5.0 (5.0 - 8.0) 10/13/19 10:10 Ur Specific [place] 1.005 (1.000-1.030) 10/13/19 10:10 Urine Protein Negative (NEGATIVE) 10/13/19 10:10 Urine Glucose (UA) Negative (NEGATIVE) 10/13/19 10:10 Urine Ketones Negative (NEGATIVE) 10/13/19 10:10 Urine Occult Blood 4+ (NEGATIVE) 10/13/19 10:10 Urine Nitrite Negative (NEGATIVE) 10/13/19 10:10 Urine Bilirubin Negative (NEGATIVE) 10/13/19 10:10 Urine Urobilinogen Normal (NORMAL) 10/13/19 10:10 Ur Leukocyte Esterase Negative (NEGATIVE) 10/13/19 10:10 Urine RBC 3-5 /HPF (0-3) A 10/13/19 10:10 Urine WBC None seen /HPF (0-5) 10/13/19 10:10 Ur Squamous Epith Cells Negative /HPF (NEGATIVE) 10/13/19 10:10 Urine Bacteria Negative /HPF (NEGATIVE) 10/13/19 10:10 Ur Culture Indicated? No/not indicated 10/13/19 10:10 - Plan (1) Acute exacerbation of chronic obstructive pulmonary disease (COPD) Status: Acute Plan: IV VACOMYCIN AND ROCEPHIN. REPEAT SPUTUM CULTURE. IVF, STRICT I & OS, LASIX IV X2 DOSE. SUPPLEMENTAL O2, CARDIAC MONITORING, BP CONTROL. ABG TODAY, REPEAT AM LABS AND CXR (2) Hypertension Status: Acute (3) Acidosis, lactic Status: Acute (4) Sepsis Status: Acute (5) CHF (congestive heart failure) Status: Acute
[2019-10-13] MEDS: XANAX PO PRN (20:53)
[2019-10-13] MEDS: NORCO 10/325 TAB PO PRN (20:54)
[2019-10-13] MEDS: SINEquan PO SCH (20:54)
[2019-10-13] MEDS: LIPITOR TAB 40 MG PO SCH (21:01)
[2019-10-14] MEDS: DUONEB 0.5 MG/3 MG (3 mL) NEB SCH ×5 (00:10→16:40)
[2019-10-14 05:04] LABS: BASOPHILS % (AUTO) 0.4 % (0.2-1.0); EOSINOPHILS % (AUTO) 0.2 % (0.9-2.9); HEMATOCRIT 34.3 % (42.0-54.0); HEMOGLOBIN 11.6 g/dL (13.5-18.0); LYMPHOCYTES # (AUTO) 1.4 X10^3/uL (1.3-2.9); MEAN CORPUSCULAR HEMOGLOBIN 32.5 pg (27.0-34.0); MEAN CORPUSCULAR HGB CONC 33.6 g/dL (33.0-35.0); MEAN CORPUSCULAR VOLUME 96.6 fL (80.0-100.0); MEAN PLATELET VOLUME 8.5 fL (7.4-11.0); MONOCYTES # (AUTO) 0.7 x10^3/uL (0.3-0.8); MONOCYTES % (AUTO) 6.7 % (0.0-13.0); NEUTROPHILS # (AUTO) 8.8 x10^3/uL (2.2-4.8); NEUTROPHILS % (AUTO) 79.7 % (42.0-75.0); PLATELET COUNT 188 X10^3/uL (150.0-450.0); RED BLOOD COUNT 3.56 X10^6/uL (4.7-6.0); RED CELL DISTRIBUTION WIDTH 13.9 % (11.6-16.5)
[2019-10-14 05:19] LABS: ALANINE AMINOTRANSFERASE 15 Units/L (12-78); ALBUMIN 2.3 g/dL (3.4-5.0); ALKALINE PHOSPHATASE 69 Units/L (46-116); ASPARTATE AMINO TRANSFERASE 21 Units/L (15-37); BLOOD UREA NITROGEN 17 mg/dL (7-18); CALCIUM 8.3 mg/dL (8.5-10.1); CARBON DIOXIDE 27.5 mmol/L (21-32); CHLORIDE 104 mmol/L (98-107); COR CA(FOR HYPOALB) 9.7 mg/dL (8.5-10.1); CREATININE 0.76 mg/dL (0.70-1.30); SODIUM 140 mmol/L (136-145); TOTAL PROTEIN 6.2 g/dL (6.4-8.2); eGFR NON BLACK RACES > 60 (>60)
[2019-10-14] MEDS: NS 1000 ML 1,000 ML IV SCH ×3 (05:55→18:35)
[2019-10-14] MEDS: KLOR-CON PO PRN (06:11)
[2019-10-14] MEDS: PREDNISONE TAB 10 MG PO SCH (08:11)
[2019-10-14] MEDS: ROCEPHIN VIAL 1 GRAM 1 G in NS 100 ML IV + SPIKE MINIBAG* 100 ML IV SCH (08:11)
[2019-10-14] MEDS: VANCOMYCIN HCL 750 MG in D5W 250 ML IV 250 ML IV SCH (08:12)
[2019-10-14] MEDS: PROTONIX TAB 40 MG PO SCH ×2 (08:12→21:15)
[2019-10-14] MEDS: LOVENOX INJ 30 MG SYR SC SCH (08:12)
[2019-10-14] MEDS: DILANTIN CAP 100 MG EXT REL PO SCH ×2 (08:12→21:15)
[2019-10-14] MEDS: FOLIC ACID TAB 1 MG PO SCH (08:12)
[2019-10-14] MEDS: LOPRESSOR TAB 50 MG PO SCH ×2 (08:12→21:15)
[2019-10-14] MEDS: PLAVIX PO SCH (08:12)
[2019-10-14] MEDS: NICOTINE PATCH TD SCH (08:19)
[2019-10-14] MEDS: PULMICORT NEB TX 0.5 MG NEB SCH ×2 (08:30→20:11)
[2019-10-14 08:55] LABS: LACTIC ACID 3.7 mmol/L (0.4-2.0)
[2019-10-14 09:03] LABS: CKMB % 2.4 % (<4); CREATINE KINASE MB 1.2 ng/mL (0-4.0); TROPONIN I 0.05 ng/mL (0-1.5)
--- NOTE | 2019-10-14 09:45 | RAD ---
HISTORYCHF, PNEUMONIASTUDYCHEST, 1 VIEWCOMPARISONX-ray 10/13/2019FINDINGSIncreasing interstitial alveolar infiltrates in the lungs. Findings are likely due to pneumonia but could be from CHF. Probable small pleural effusions are similar to prior study. Cardiomegaly and pulmonary vascular congestion are likely present.IMPRESSIONProbable CHF. Worsening lung opacities are suspicious for pneumonia but could be due to pulmonary edema.Electronically signed by: Steve Langley (Oct 14, 2019 09:44:27)
[2019-10-14] MEDS: ROBITUSSIN DM PO SCH ×4 (09:51→21:16)
[2019-10-14] MEDS: MAGNESIUM SULFATE 1 GRAM/100 mL PREMIX 1 GM/100 ML BAG IV PRN (14:23)
[2019-10-14] MEDS: LIPITOR TAB 40 MG PO SCH (17:14)
[2019-10-14] MEDS ORDERED: PHARMACY COMMENT IV NR (20:30)
[2019-10-14 20:34] LABS: CREATININE 0.6 mg/dL (0.70-1.30); VANCOMYCIN,TROUGH 8.4 ug/mL (15-20)
[2019-10-14] MEDS ORDERED: PHARMACY CONSULT - VANCOMYCIN XX SCH (21:00)
[2019-10-14] MEDS: NORCO 10/325 TAB PO PRN (21:15)
[2019-10-14] MEDS: SINEquan PO SCH (21:15)
[2019-10-14] MEDS: XANAX PO PRN (21:17)
[2019-10-14] MEDS ORDERED: D5W 250 ML IV 250 ML IV ONE (21:37)
[2019-10-14] MEDS ORDERED: VANCOMYCIN HCL ONE (21:37)
[2019-10-14] MEDS: VANCOMYCIN HCL 1 G in D5W 250 ML IV 250 ML IV SCH (21:41)
[2019-10-15] MEDS: DUONEB 0.5 MG/3 MG (3 mL) NEB SCH ×5 (00:15→17:11)
[2019-10-15] MEDS: NS 1000 ML 1,000 ML IV SCH ×3 (02:59→17:27)
[2019-10-15 05:26] LABS: BASOPHILS % (AUTO) 0.3 % (0.2-1.0); EOSINOPHILS # (AUTO) 0.2 x10^3/uL (0.0-0.2); EOSINOPHILS % (AUTO) 2.4 % (0.9-2.9); HEMOGLOBIN 11.7 g/dL (13.5-18.0); LYMPHOCYTES # (AUTO) 1.2 X10^3/uL (1.3-2.9); LYMPHOCYTES % (AUTO) 14.5 % (21.0-51.0); MEAN CORPUSCULAR HEMOGLOBIN 32.8 pg (27.0-34.0); MEAN CORPUSCULAR HGB CONC 34.3 g/dL (33.0-35.0); MEAN CORPUSCULAR VOLUME 95.6 fL (80.0-100.0); MEAN PLATELET VOLUME 8.3 fL (7.4-11.0); MONOCYTES # (AUTO) 0.8 x10^3/uL (0.3-0.8); MONOCYTES % (AUTO) 9.2 % (0.0-13.0); NEUTROPHILS # (AUTO) 6.1 x10^3/uL (2.2-4.8); NEUTROPHILS % (AUTO) 73.6 % (42.0-75.0); PLATELET COUNT 189 X10^3/uL (150.0-450.0); RED BLOOD COUNT 3.56 X10^6/uL (4.7-6.0); WHITE BLOOD COUNT 8.2 X10^3/uL (3.6-10.0)
[2019-10-15 05:43] LABS: ALANINE AMINOTRANSFERASE 16 Units/L (12-78); ALBUMIN 2.1 g/dL (3.4-5.0); ALKALINE PHOSPHATASE 73 Units/L (46-116); ASPARTATE AMINO TRANSFERASE 19 Units/L (15-37); BLOOD UREA NITROGEN 13 mg/dL (7-18); CARBON DIOXIDE 27.9 mmol/L (21-32); CHLORIDE 101 mmol/L (98-107); COR CA(FOR HYPOALB) 9.5 mg/dL (8.5-10.1); CREATININE 0.65 mg/dL (0.70-1.30); MAGNESIUM 1.8 mg/dL (1.7-2.9); SODIUM 139 mmol/L (136-145); eGFR NON BLACK RACES > 60 (>60)
[2019-10-15 05:46] LABS: LACTIC ACID 1.7 mmol/L (0.4-2.0)
[2019-10-15 06:06] LABS: PLATELET MORPHOLOGY COMMENT NORMAL (NORMAL)
[2019-10-15] MEDS: K-DUR TAB 20 MEQ PO PRN ×2 (06:25→13:41)
--- NOTE | 2019-10-15 07:15 | RAD ---
HISTORYCHF, PNEUMONIASTUDYCHEST, 1 VIEWCOMPARISONChest film October 14, 2019FINDINGSThe trachea is midline. The cardiac silhouette is mildly enlarged there are persistent mixed interstitial alveolar infiltrates right upper lobe and diffusely in the left mid and lower lung field. There is stable apical pleural scarring. No effusions are observed.. This pattern is most consistent with pneumonia superimposed on chronic interstitial fibrotic lung disease. The bony thorax is unremarkable.IMPRESSIONChronic lung changes of fibrosis left greater than right with superimposed mixed interstitial alveolar infiltrates which have progressed since the but have not changed since the 14 of October. Findings are most consistent with pneumonia superimposed on chronic changes of fibrosis.Electronically signed by: JONA HENDERSON (Oct 15, 2019 07:13:29)
[2019-10-15] MEDS: PULMICORT NEB TX 0.5 MG NEB SCH ×2 (09:02→20:12)
[2019-10-15] MEDS: NICOTINE PATCH TD SCH (09:16)
[2019-10-15] MEDS: ROCEPHIN VIAL 1 GRAM 1 G in NS 100 ML IV + SPIKE MINIBAG* 100 ML IV SCH (09:17)
[2019-10-15] MEDS: LOVENOX INJ 30 MG SYR SC SCH (09:17)
[2019-10-15] MEDS: ROBITUSSIN DM PO SCH ×4 (09:18→21:37)
[2019-10-15] MEDS: DILANTIN CAP 100 MG EXT REL PO SCH ×2 (09:18→21:37)
[2019-10-15] MEDS: LOPRESSOR TAB 50 MG PO SCH ×2 (09:18→21:37)
[2019-10-15] MEDS: PREDNISONE TAB 10 MG PO SCH (09:18)
[2019-10-15] MEDS: XANAX PO PRN ×2 (09:18→21:37)
[2019-10-15] MEDS: PROTONIX TAB 40 MG PO SCH ×2 (09:18→21:37)
[2019-10-15] MEDS: FOLIC ACID TAB 1 MG PO SCH (09:18)
[2019-10-15] MEDS: PLAVIX PO SCH (09:19)
[2019-10-15] MEDS: NORCO 10/325 TAB PO PRN ×2 (09:19→21:37)
[2019-10-15] MEDS: VANCOMYCIN HCL 1 G in D5W 250 ML IV 250 ML IV SCH ×2 (11:09→21:38)
[2019-10-15] MEDS: SOLU-Medrol 40 MG VIAL IVP SCH ×3 (11:10→21:38)
[2019-10-15] MEDS: LIPITOR TAB 40 MG PO SCH (17:27)
[2019-10-15] MEDS: SINEquan PO SCH (21:37)
[2019-10-15] MEDS: LASIX IVP SCH (21:37)
[2019-10-16] MEDS: DUONEB 0.5 MG/3 MG (3 mL) NEB SCH ×4 (00:55→17:11)
[2019-10-16 05:14] LABS: BASOPHILS % (AUTO) 0.4 % (0.2-1.0); HEMATOCRIT 34.3 % (42.0-54.0); HEMOGLOBIN 11.5 g/dL (13.5-18.0); LYMPHOCYTES # (AUTO) 1.1 X10^3/uL (1.3-2.9); MEAN CORPUSCULAR HEMOGLOBIN 32.5 pg (27.0-34.0); MEAN CORPUSCULAR HGB CONC 33.6 g/dL (33.0-35.0); MEAN CORPUSCULAR VOLUME 96.9 fL (80.0-100.0); MEAN PLATELET VOLUME 8.8 fL (7.4-11.0); MONOCYTES # (AUTO) 0.9 x10^3/uL (0.3-0.8); MONOCYTES % (AUTO) 7.9 % (0.0-13.0); NEUTROPHILS # (AUTO) 9.2 x10^3/uL (2.2-4.8); NEUTROPHILS % (AUTO) 81.7 % (42.0-75.0); PLATELET COUNT 198 X10^3/uL (150.0-450.0); RED BLOOD COUNT 3.54 X10^6/uL (4.7-6.0); WHITE BLOOD COUNT 11.2 X10^3/uL (3.6-10.0)
[2019-10-16 05:26] LABS: ALANINE AMINOTRANSFERASE 15 Units/L (12-78); ALBUMIN 2.1 g/dL (3.4-5.0); ALKALINE PHOSPHATASE 71 Units/L (46-116); ASPARTATE AMINO TRANSFERASE 16 Units/L (15-37); BLOOD UREA NITROGEN 11 mg/dL (7-18); CALCIUM 8.2 mg/dL (8.5-10.1); CARBON DIOXIDE 30.1 mmol/L (21-32); CHLORIDE 100 mmol/L (98-107); COR CA(FOR HYPOALB) 9.7 mg/dL (8.5-10.1); COR NA(FOR HYPERGLY) 137 mmol/L (136-145); CREATININE 0.74 mg/dL (0.70-1.30); SODIUM 137 mmol/L (136-145); TOTAL PROTEIN 6.3 g/dL (6.4-8.2); eGFR NON BLACK RACES > 60 (>60)
[2019-10-16] MEDS: NS 1000 ML 1,000 ML IV SCH ×3 (06:15→20:50)
[2019-10-16] MEDS ORDERED: PHARMACY COMMENT IV NR (08:30)
[2019-10-16] MEDS: LOVENOX INJ 30 MG SYR SC SCH (09:31)
[2019-10-16] MEDS: NICOTINE PATCH TD SCH (09:32)
[2019-10-16] MEDS: ROCEPHIN VIAL 1 GRAM 1 G in NS 100 ML IV + SPIKE MINIBAG* 100 ML IV SCH (09:32)
[2019-10-16] MEDS: VANCOMYCIN HCL 1 G in D5W 250 ML IV 250 ML IV SCH ×2 (09:32→18:11)
[2019-10-16] MEDS: PLAVIX PO SCH (09:33)
[2019-10-16] MEDS: PROTONIX TAB 40 MG PO SCH ×2 (09:33→20:51)
[2019-10-16] MEDS: DILANTIN CAP 100 MG EXT REL PO SCH ×2 (09:33→20:50)
[2019-10-16] MEDS: LOPRESSOR TAB 50 MG PO SCH ×2 (09:33→20:51)
[2019-10-16] MEDS: LASIX IVP SCH ×2 (09:33→20:51)
[2019-10-16] MEDS: ROBITUSSIN DM PO SCH ×4 (09:33→20:52)
[2019-10-16] MEDS: FOLIC ACID TAB 1 MG PO SCH (09:33)
[2019-10-16] MEDS: PULMICORT NEB TX 0.5 MG NEB SCH ×2 (09:49→21:40)
[2019-10-16 10:25] LABS: CREATININE 0.7 mg/dL (0.70-1.30); VANCOMYCIN,TROUGH 12.1 ug/mL (15-20)
[2019-10-16] MEDS: LIPITOR TAB 40 MG PO SCH (18:00)
[2019-10-16] MEDS: K-DUR TAB 20 MEQ PO SCH (20:50)
[2019-10-16] MEDS: SINEquan PO SCH (20:52)
[2019-10-16] MEDS: XANAX PO PRN (20:54)
[2019-10-17] MEDS: DUONEB 0.5 MG/3 MG (3 mL) NEB SCH ×3 (00:12→12:10)
[2019-10-17] MEDS: NS 1000 ML 1,000 ML IV SCH ×2 (04:55→13:44)
[2019-10-17] MEDS: VANCOMYCIN HCL 1 G in D5W 250 ML IV 250 ML IV SCH (05:17)
[2019-10-17 06:58] LABS: BASOPHILS # (AUTO) 0.1 X10^3/uL (0.0-0.1); BASOPHILS % (AUTO) 0.7 % (0.2-1.0); EOSINOPHILS # (AUTO) 0.2 x10^3/uL (0.0-0.2); EOSINOPHILS % (AUTO) 2.2 % (0.9-2.9); HEMATOCRIT 31.7 % (42.0-54.0); HEMOGLOBIN 10.7 g/dL (13.5-18.0); LYMPHOCYTES # (AUTO) 0.9 X10^3/uL (1.3-2.9); LYMPHOCYTES % (AUTO) 7.8 % (21.0-51.0); MEAN CORPUSCULAR HEMOGLOBIN 32.2 pg (27.0-34.0); MEAN CORPUSCULAR HGB CONC 33.6 g/dL (33.0-35.0); MEAN CORPUSCULAR VOLUME 95.6 fL (80.0-100.0); MEAN PLATELET VOLUME 8.1 fL (7.4-11.0); MONOCYTES # (AUTO) 0.7 x10^3/uL (0.3-0.8); MONOCYTES % (AUTO) 6.2 % (0.0-13.0); NEUTROPHILS # (AUTO) 9.3 x10^3/uL (2.2-4.8); NEUTROPHILS % (AUTO) 83.1 % (42.0-75.0); PLATELET COUNT 216 X10^3/uL (150.0-450.0); RED BLOOD COUNT 3.31 X10^6/uL (4.7-6.0); RED CELL DISTRIBUTION WIDTH 13.9 % (11.6-16.5); WHITE BLOOD COUNT 11.2 X10^3/uL (3.6-10.0)
[2019-10-17 07:20] LABS: ALANINE AMINOTRANSFERASE 15 Units/L (12-78); ALKALINE PHOSPHATASE 66 Units/L (46-116); ASPARTATE AMINO TRANSFERASE 18 Units/L (15-37); BLOOD UREA NITROGEN 10 mg/dL (7-18); CALCIUM 8.4 mg/dL (8.5-10.1); CARBON DIOXIDE 29.5 mmol/L (21-32); CHLORIDE 96 mmol/L (98-107); COR NA(FOR HYPERGLY) 135 mmol/L (136-145); CREATININE 0.78 mg/dL (0.70-1.30); SODIUM 135 mmol/L (136-145); TOTAL PROTEIN 6.1 g/dL (6.4-8.2); eGFR NON BLACK RACES > 60 (>60)
[2019-10-17] MEDS ORDERED: K-DUR TAB 20 MEQ PO SCH (09:00)
[2019-10-17] MEDS: LASIX IVP SCH (09:04)
[2019-10-17] MEDS: LOVENOX INJ 30 MG SYR SC SCH (09:04)
[2019-10-17] MEDS: ROBITUSSIN DM PO SCH ×2 (09:04→13:43)
[2019-10-17] MEDS: ROCEPHIN VIAL 1 GRAM 1 G in NS 100 ML IV + SPIKE MINIBAG* 100 ML IV SCH (09:04)
[2019-10-17] MEDS: DILANTIN CAP 100 MG EXT REL PO SCH (09:05)
[2019-10-17] MEDS: FOLIC ACID TAB 1 MG PO SCH (09:05)
[2019-10-17] MEDS: PROTONIX TAB 40 MG PO SCH (09:05)
[2019-10-17] MEDS: PLAVIX PO SCH (09:05)
[2019-10-17] MEDS: LOPRESSOR TAB 50 MG PO SCH (09:05)
[2019-10-17] MEDS: K-DUR TAB 20 MEQ PO SCH (09:06)
[2019-10-17] MEDS: NICOTINE PATCH TD SCH (09:06)
[2019-10-17] MEDS: PULMICORT NEB TX 0.5 MG NEB SCH (09:23)
[2019-10-17] MEDS: K-DUR TAB 20 MEQ PO PRN (13:43)
[2019-10-17 14:07] VITALS: BP 151/73
== END 2019-10-17 14:20 | DRG 177 ==
LOC: ER 14:17 → MED/SURG 17:24
PROVIDERS: ADMIT Obstetrics & Gynecology Obstetrics; ATTEND Internal Medicine
DX: I11.0 Hypertensive heart disease with heart failure; R53.1 Weakness; Z72.0 Tobacco use; R62.7 Adult failure to thrive; K21.9 Gastro-esophageal reflux disease without esophagitis; I25.10 Atherosclerotic heart disease of native coronary artery without angina pectoris; J13 Pneumonia due to Streptococcus pneumoniae; E87.6 Hypokalemia; A41.9 Sepsis, unspecified organism; J15.211 Pneumonia due to Methicillin susceptible Staphylococcus aureus; R94.31 Abnormal electrocardiogram [ECG] [EKG]; J44.1 Chronic obstructive pulmonary disease with (acute) exacerbation; E86.0 Dehydration; I50.9 Heart failure, unspecified; E78.49 Other hyperlipidemia; F03.90 Unspecified dementia, unspecified severity, without behavioral disturbance, psychotic disturbance, mood disturbance, and anxiety
CPT/HCPCS: 36415; 36600; 71010; 71020; 71045; 71046; 80048; 80053; 80202; 81001; 82550; 82553; 82565; 82803; 83605; 83735; 84132; 84484; 85025; 87040; 87070; 87077; 87186; 87205; 93005; 94640; 94669; 94760; 96365; 96367; 96374; 96375; 97110; 97112; 97162; 99284; A4216; A4222; J0456; J0696; J1650; J1940; J2920; J2930; J3370; J3475; J7030; J7050; J7060; J7512; J7620; J7626